=== PATIENT | male | born 1975 | race Caucasian/White ===

== ENCOUNTER 2016-10-13 10:26 | Emergency (ER) | payer OTHER ==
[2016-10-13] MEDS ORDERED: KETOROLAC 30 MG/ML VIAL ONE (11:16)
[2016-10-13] MEDS ORDERED: DUONEB INH ONE ×2 (11:33)
== END 2016-10-13 12:17 | disposition home or self-care (01) ==
LOC: ER 10:26
CPT/HCPCS: 36415; 71020; 80053; 83690; 85025; 94640; 96374